=== PATIENT | male | born 1955 | race Caucasian/White ===

== ENCOUNTER 2024-10-19 07:56 | Outpatient (AMB) | payer OTHER, SELFPAY ==
[2024-10-19 08:13] VITALS: BP 124/79; PULSE 73; RESP 18; TEMP 36.2; O2SAT 96; BMI 39.6
--- NOTE | 2024-10-19 08:13 | ORTHONT_ITS ---
Vital signs 10/19/24 08:13 Height 1.73 m Height Method Stated Weight 118.388 kg Weight Measurement Method Standing Scale BMI 39.6 BP 124/79 Blood Pressure Source Automatic Cuff Blood Pressure Location Right Upper Arm Position Sitting Respiration 18 Pulse 73 Pulse Source Monitor Temp 97.2 F Temp Source Temporal Artery Scan Pulse Oximetry (%) 96 Oxygen Delivery Method Room Air Med/Allergies Allergies & Medications Allergies No Known Allergies Allergy (Verified 10/19/24 08:16) Medication Reconciliation aspirin 81 mg tablet 81 mg PO QDAY 10/19/24 [History Confirmed 10/19/24] atorvastatin 40 mg tablet 40 mg PO QDAY 10/19/24 [History Confirmed 10/19/24] clopidogrel 75 mg tablet 75 mg PO QDAY 10/19/24 [History Confirmed 10/19/24] clopidogrel 75 mg tablet (Plavix) 75 mg PO QDAY 10/19/24 [History Confirmed 10/19/24] cyclobenzaprine 10 mg tablet 10 mg PO HS 10/19/24 [History Confirmed 10/19/24] empagliflozin 25 mg tablet (Jardiance) 25 mg PO QAM 10/19/24 [History Confirmed 10/19/24] ibuprofen 800 mg tablet 800 mg PO Q8H 10/19/24 [History Confirmed 10/19/24] lisinopril 40 mg tablet 40 mg PO QDAY 10/19/24 [History Confirmed 10/19/24] loratadine 10 mg tablet 10 mg PO QDAY 10/19/24 [History Confirmed 10/19/24] metformin 1,000 mg tablet 1,000 mg PO QDAY 10/19/24 [History Confirmed 10/19/24] metoprolol succinate 25 mg tablet,extended release 24 hr 25 mg PO QDAY 10/19/24 [History Confirmed 10/19/24] prednisone 20 mg tablet 20 mg PO QDAY 10/19/24 [History Confirmed 10/19/24] semaglutide 0.25 mg or 0.5 mg (2 mg/1.5 mL) subcutaneous pen injector (Ozempic) 0.5 mg subcut QWEEK 10/19/24 [History Confirmed 10/19/24] Exam Exam patient is in no acute distress and is cooperative with the examination today. Breathing is nonlabored. In no respiratory distress. Bilateral extremities were evaluated and demonstrates sensation intact to light touch. Palpable pedal pulses are present. No significant edema is present. Bilateral hips were examined. The patient has no pain with log roll of the hips. Internal rotation to 30 degrees and external rotation to 30 degrees is painless. Negative FADIR. The left knee was examined. The left knee is in varus alignment. Range of motion from 0-115 degrees. Knee is stable to varus and valgus as well as AP translation with <5mm. Patient has a negative McMurrays. There is no pain with patellofemoral compression and no crepitus noted. The knee is tender to palpation medially. The right knee was also examined. The right knee is in varus alignment. Range of motion from 0-120 degrees. Knee is stable to varus and valgus as well as AP translation with <5mm. Patient has a negative McMurrays. There is no pain with patellofemoral compression and no crepitus noted. The knee is tender to palpation medially. Assessment and Plan Problem List (1) Degenerative arthritis of knee, bilateral: Status: Acute Plan: patient's pleasant 61-year-old male with bilateral knee pain and bilateral knee arthritis. We discussed different treatment options. We recommend that he get x-rays as we do not have any x-rays on record. He has seen multiple orthopedic surgeons and he was offered various treatment options that all seem to conflict. We will get new x-rays and go from Advanced Care Planning Discussion Advance care planning discussed with:: patient Office Procedures GNS Level of Care Nursing/Assessment Patient Status: Initial/New Patient Nursing Assessment/Reassesment: Medication Reconciliation, Update PMH in EMR and Vital Signs Coordination of Care: Complex Care and Chronic Disease 1-5, Education Complex Pt/Fam, Consent,records obtained, informed consent, 1 Ins Authorization, Lab and Imaging orders, Results/Orders obtained and Staff clarify orders New Patient Charge New Patient Point Assignment: 1124 New Patient Point Charge: INSOLE [employer]IP [employer]URNER Level 4 ([id number]) MA Intake Visit Data Collection New Patient or Established: New Patient (never been to [facility]) Reason for Visit:: BILATERAL KNEE PAIN Seen by Clinical Staff ONLY (RN/MA): No PCP or OBGYN visit in last 3 months: Yes Hx Now: No Do You Feel Safe at Home: Yes Authorities Contacted: N/A Questionairres Past Medical History Past Medical History Have you ever been diagnosed with any of the following: Neurological Problems Cerebrovascular Accident (CVA): No Transient Ischemic Attacks (TIA): No Dementia: No Alzheimer's Disease: No Parkinson's Disease: No Brain Tumor: No Meningitis: No Seizures: No Epilepsy: No Multiple Sclerosis: No Cerebral Palsy: No Amyotrophic Lateral Sclerosis (ALS/Diandra Gehrig's): No Guillain-[place] Syndrome: No Spina Bifida: No Paralysis: No Peripheral Neuropathy: No Calvillo's Palsy: No Subdural Hematoma: No Migraine: No Head Trauma: No Spinal Cord Injury: No Traumatic Brain Injury: No Cardiology Problems Myocardial Infarction: No Cardiac Arrhythmia: No Atrial Fibrillation: No Angina: No Heart Murmur: No Coronary Artery Disease: No Atherosclerotic Heart Disease: No Peripheral Vascular Disease: No Hypercholesterolemia: No Aneurysm: No Congestive Heart Failure: No Congenital Heart Disease: No Valvular Heart Disease: No Rheumatic Fever: No Cardiomyopathy: No Edema: No Pericarditis: No Cellulitis: No Deep Vein Thrombosis: No Hypertension: Yes Hypotension: No Varicose Veins: No Respiratory Problems Chronic Obstructive Pulmonary Disease (COPD): No Asthma: No Bronchitis: No Emphysema: No Pneumonia: No Pulmonary Fibrosis: No Tuberculosis: No Pulmonary Embolism: No Pulmonary Edema: No Sleep Apnea: No CPAP Dependent: No Respiratory Aspiration: No Dyspnea: No Orthopnea: No Hx Cough: No Cough: No Wheezing: No Chest Deformities: No Smoking: No Smoking Cessation Counseling: No Smoking Exposure: No Tobacco Use: No Clubbing: No Exposure to Respiratory Irritants: No Intubation: No Stomache/Intestinal Problems Liver Cancer: No Hepatitis: No Cirrhosis: No Pancreatic Cancer: No Pancreatitis: No Celiac Disease: No Gall Bladder Disease: No Gastrointestinal Bleed: No Esophageal Varices: No Wu's Esophagus: No Colitis: No Ulcerative Colitis: No Diverticulitis: No Diverticulosis: No Ulcer: No Colorectal Cancer: No Irritable Bowel: No Crohn's Disease: No Obstructive Bowel: No Hiatal Hernia: No Hemorrhoids: No Gastroesophageal Reflux Disease: No Polyps: No Obesity: No Genital/Urinary Problems Chronic Kidney Disease: No Renal Disease: No Kidney Stones: No Polycystic Kidney Disease: No Neurogenic Bladder: No Inguinal Hernia: No Dialysis: No Prostate Cancer: No Benign Prostatic Hyperplasia: No Reproductive Problems Breast Cancer: No Fibroids: No Genital Herpes: No Gonorrhea: No Syphilis: No Testicular Cancer: No Musculoskeletal Problems Muscular Dystrophy: No Myasthenia Gravis: No Marfan's Syndrome: No Bone Cancer: No Arthritis: Yes Rheumatoid Arthritis: No Osteoporosis: No Degenerative Disk Disease: No Gout: No Scoliosis: No Carpal Tunnel Syndrome: No Fibromyalgia: No Fractures: No Degenerative Joint Disease: No Osteomyelitis: No Poliovirus: No Head,Eye,Nose,Throat Problems Cataracts: No Glaucoma: No Blind: No Retinal Detachment: No Macular Degeneration: No Chronic Ear Infections: No Deafness: No Eye Prosthesis: No Endocrine Problems Diabetes Mellitus Type 1: No Diabetes Mellitus Type 2: Yes Hypoglycemia: No [place]'s Syndrome: No Hakeem's Disease: No Hyperthyroidism: No Hypothyroidism: No Thyroid Cancer: No Parathyroid Disease: No Pituitary Disease: No Systemic Lupus Erythematosus: No Syndrome of Inappropriate Antidiuretic Hormone: No Blood Problems Anemia: No Leukemia: No Hemophilia: No Thalassemia: No Sickle Cell Disease: No Clotting Problems: No Psychologic Problems Schizophrenia: No Recreational Drug Use: No Bipolar Disorder: No Depression: No Anxiety: No Behavior Problems: No Self-Mutilation: No Attention Deficit Disorder: No Attention Deficit Hyperactivity Disorder: No Depression: No Post Traumatic Stress Disorder: No Eating Disorder: No Other Problems Hospitalization: No Autoimmune Disease: No Down Syndrome: No Autism: No Developmental Delay: No Cosmetic Surgery: No Shingles: No Falls: No Blood Transfusions: No Blood Transfusion Reaction: No Anesthesia Reactions: No Organ Transplant: No Chemotherapy: No Radiation Therapy: No Hyperbaric Therapy: No MRSA: No VRSA: No Vancomycin-Resistant Enterococci: No Human Immunodeficiency Virus (HIV): No Chicken Pox: No Measles: No Mumps: No Rubella ([place] Measles): No Pertussis: No Klebsiella Pneumoniae Carbapenemase Producing Bacteria: No Clostridium Difficile: No Hepatitis A: No Hepatitis B: No Hepatitis C: No Communicable Disease: No Cancer: No Lung Cancer: No Surgical History Angioplasty: No Appendectomy: No Bariatric Surgery: No Breast Surgery: No Cancer Surgery: No Carotid Endarterectomy: No Cholecystectomy: No Colectomy: No Coronary Artery Bypass Graft: No Valve Replacement: No Herniorrhaphy: No Total Hip Replacement: No Total Knee Replacement: No Pacemaker: Yes Sinus Surgery: No Splenectomy: No Thyroidectomy: No Subjective Visit Visit for: new patient and knee Immunization / Flu Flu Vaccine in the Last 12 Months: No Flu Vaccine Exclusion Criteria: Refused by Patient History of Present Illness Chief complaint: Bilateral knee pain Date of injury / onset of symptoms: 5 YEARS patient is a pleasant 61-year-old male with bilateral knee pain of approximately equal severity on both sides. The knee pain has been ongoing for at least 5 years. He has tried multiple injections in the past as well as physical therapy and takes ibuprofen. He does have a history of a pacemaker and he is on Plavix. . He also has a history of diabetes Personal History Occupation: RETIRED BMI Counceling provided: Yes Pain Pain level (0-10): 8 Pain duration: CONSTANT Pain location: anterior Pain quality: sharp, dull and aching Pain timing: night, increases with activity and stairs Ambulatory data Ambulatory device: none Treatments Number of previous injections: 5 Improvement with previous injections: No Number of Physical Therapy sessions: 4 Improvement with PT: No Improvement with NSAIDS: no Review of Systems Review of Systems: All systems negative unless otherwise noted in HPI.
--- NOTE | 2024-10-19 08:20 | XR_ITS ---
Examination: Bilateral knees 2 views Right lateral knee left lateral knee 2 views Bilateral axial knees single view TECHNIQUE: Bilateral AP knees standing single view, bilateral PA knees standing single view flexion Staining right lateral knee left lateral knee 2 views Bilateral axial knees single view total 5 views Date and time: October 19, 2024, 0826 hours INDICATIONS: Bilateral knee pain 5 years, left knee surgery 40 years ago. FINDINGS: Moderate to advanced narrowing lateral joint space right knee Moderate to advanced osteoarthritis right patellofemoral joint Severe narrowing lateral joint space left knee Moderate to advanced osteoarthritis left patellofemoral joint No fractures No patellar dislocations IMPRESSION: Moderate to advanced narrowing lateral joint space right knee Moderate to advanced osteoarthritis right patellofemoral joint Severe narrowing lateral joint space left knee Moderate to advanced osteoarthritis left patellofemoral joint
== END 2024-10-19 08:23 | disposition home or self-care (01) ==
PROVIDERS: PCP Family Medicine; Referring Provider Family Medicine; Supervising Provider Orthopaedic Surgery Adult Reconstructive Orthopaedic Surgery; Visit Provider Orthopaedic Surgery Adult Reconstructive Orthopaedic Surgery
DX: M17.0 Bilateral primary osteoarthritis of knee (principal); M25.562 Pain in left knee; M25.561 Pain in right knee
CPT/HCPCS: 73564; 99204; G0463

== ENCOUNTER 2024-11-02 09:34 | Outpatient (AMB) | payer OTHER, SELFPAY ==
--- NOTE | 2024-11-02 09:45 | PD.ORTHCLVIS ---
Vital signs 11/02/24 09:50 Height 1.73 m Height Method Measured Weight 118.047 kg Weight Measurement Method Standing Scale BMI 39.4 BP 154/83 H Blood Pressure Source Automatic Cuff Blood Pressure Location Left Upper Arm Position Sitting Respiration 18 Pulse 75 Pulse Source Monitor Temp 98.2 F Temp Source Temporal Artery Scan Pulse Oximetry (%) 96 Oxygen Delivery Method Room Air Med/Allergies Allergies & Medications Allergies No Known Allergies Allergy (Verified 11/02/24 09:51) Medication Reconciliation aspirin 81 mg tablet 81 mg PO QDAY 10/19/24 [History Confirmed 11/02/24] atorvastatin 40 mg tablet 40 mg PO QDAY 10/19/24 [History Confirmed 11/02/24] clopidogrel 75 mg tablet 75 mg PO QDAY 10/19/24 [History Confirmed 11/02/24] clopidogrel 75 mg tablet (Plavix) 75 mg PO QDAY 10/19/24 [History Confirmed 11/02/24] cyclobenzaprine 10 mg tablet 10 mg PO HS 10/19/24 [History Confirmed 11/02/24] empagliflozin 25 mg tablet (Jardiance) 25 mg PO QAM 10/19/24 [History Confirmed 11/02/24] ibuprofen 800 mg tablet 800 mg PO Q8H 10/19/24 [History Confirmed 11/02/24] lisinopril 40 mg tablet 40 mg PO QDAY 10/19/24 [History Confirmed 11/02/24] loratadine 10 mg tablet 10 mg PO QDAY 10/19/24 [History Confirmed 11/02/24] metformin 1,000 mg tablet 1,000 mg PO QDAY 10/19/24 [History Confirmed 11/02/24] metoprolol succinate 25 mg tablet,extended release 24 hr 25 mg PO QDAY 10/19/24 [History Confirmed 11/02/24] prednisone 20 mg tablet 20 mg PO QDAY 10/19/24 [History Confirmed 11/02/24] semaglutide 0.25 mg or 0.5 mg (2 mg/1.5 mL) subcutaneous pen injector (Ozempic) 0.5 mg subcut QWEEK 10/19/24 [History Confirmed 11/02/24] Exam Exam patient is in no acute distress and is cooperative with the examination today. Breathing is nonlabored. In no respiratory distress. Bilateral extremities were evaluated and demonstrates sensation intact to light touch. Palpable pedal pulses are present. No significant edema is present. Bilateral hips were examined. The patient has no pain with log roll of the hips. Internal rotation to 30 degrees and external rotation to 30 degrees is painless. Negative FADIR. The left knee was examined. The left knee is in varus alignment. Range of motion from 0-115 degrees. Knee is stable to varus and valgus as well as AP translation with <5mm. Patient has a negative McMurrays. There is no pain with patellofemoral compression and no crepitus noted. The knee is tender to palpation medially. The right knee was also examined. The right knee is in varus alignment. Range of motion from 0-120 degrees. Knee is stable to varus and valgus as well as AP translation with <5mm. Patient has a negative McMurrays. There is no pain with patellofemoral compression and no crepitus noted. The knee is tender to palpation medially and laterally. Xrays demonstrate complete joint space loss laterally and valgus deformity Assessment and Plan Problem List (1) Degenerative arthritis of knee, bilateral: Status: Acute Plan: patient is a pleasant 61-year-old male with bilateral knee pain and bilateral knee arthritis. We discussed different treatment options. We discussed continued conservative treatment with injections and anti-inflammatories as well as surgery. He would likely be at high risk for surgery given that he is on Plavix and had pacemaker. He will need a cardiac clearance for sure. I will have him see his patient services assistant to get risk ratified. We discussed total knee replacement today as a possible Advanced Care Planning Discussion Advance care planning discussed with:: patient Office Procedures GNS Level of Care Nursing/Assessment Patient Status: Established Patient Nursing Assessment/Reassesment: Medication Reconciliation, Update PMH in EMR and Vital Signs Coordination of Care: Complex Care and Chronic Disease 1-5, Education Complex Pt/Fam, Consent,records obtained, informed consent, Results/Orders obtained and Staff clarify orders Established Patient Charge Established Patient Point Assignment: 95 Established Patient Point Charge: EP Level 3 (80-115) MA Intake Visit Data Collection New Patient or Established: Established Patient (seen at [facility] within 3 years) Reason for Visit:: XRAY RESULTS BILATERAL KNEE PAIN Seen by Clinical Staff ONLY (RN/MA): No Stone Decorator Required: No PCP or OBGYN visit in last 3 months: Yes Hx Now: No Do You Feel Safe at Home: Yes Authorities Contacted: N/A Questionairres Past Medical History Past Medical History Have you ever been diagnosed with any of the following: Neurological Problems Cerebrovascular Accident (CVA): No Transient Ischemic Attacks (TIA): No Dementia: No Alzheimer's Disease: No Parkinson's Disease: No Brain Tumor: No Meningitis: No Seizures: No Epilepsy: No Multiple Sclerosis: No Cerebral Palsy: No Amyotrophic Lateral Sclerosis (ALS/Diandra Gehrig's): No Guillain-[place] Syndrome: No Spina Bifida: No Paralysis: No Peripheral Neuropathy: No Calvillo's Palsy: No Subdural Hematoma: No Migraine: No Head Trauma: No Spinal Cord Injury: No Traumatic Brain Injury: No Cardiology Problems Myocardial Infarction: No Cardiac Arrhythmia: No Atrial Fibrillation: No Angina: No Heart Murmur: No Coronary Artery Disease: No Atherosclerotic Heart Disease: No Peripheral Vascular Disease: No Hypercholesterolemia: No Aneurysm: No Congestive Heart Failure: No Congenital Heart Disease: No Valvular Heart Disease: No Rheumatic Fever: No Cardiomyopathy: No Edema: No Pericarditis: No Cellulitis: No Deep Vein Thrombosis: No Hypertension: Yes Hypotension: No Varicose Veins: No Respiratory Problems Chronic Obstructive Pulmonary Disease (COPD): No Asthma: No Bronchitis: No Emphysema: No Pneumonia: No Pulmonary Fibrosis: No Tuberculosis: No Pulmonary Embolism: No Pulmonary Edema: No Sleep Apnea: No CPAP Dependent: No Respiratory Aspiration: No Dyspnea: No Orthopnea: No Hx Cough: No Cough: No Wheezing: No Chest Deformities: No Smoking: No Smoking Cessation Counseling: No Smoking Exposure: No Tobacco Use: No Clubbing: No Exposure to Respiratory Irritants: No Intubation: No Stomache/Intestinal Problems Liver Cancer: No Hepatitis: No Cirrhosis: No Pancreatic Cancer: No Pancreatitis: No Celiac Disease: No Gall Bladder Disease: No Gastrointestinal Bleed: No Esophageal Varices: No Wu's Esophagus: No Colitis: No Ulcerative Colitis: No Diverticulitis: No Diverticulosis: No Ulcer: No Colorectal Cancer: No Irritable Bowel: No Crohn's Disease: No Obstructive Bowel: No Hiatal Hernia: No Hemorrhoids: No Gastroesophageal Reflux Disease: No Obesity: No Genital/Urinary Problems Renal Disease: No Kidney Stones: No Polycystic Kidney Disease: No Neurogenic Bladder: No Inguinal Hernia: No Dialysis: No Prostate Cancer: No Benign Prostatic Hyperplasia: No Reproductive Problems Breast Cancer: No Fibroids: No Genital Herpes: No Gonorrhea: No Syphilis: No Testicular Cancer: No Musculoskeletal Problems Muscular Dystrophy: No Myasthenia Gravis: No Marfan's Syndrome: No Bone Cancer: No Arthritis: Yes Rheumatoid Arthritis: No Osteoporosis: No Degenerative Disk Disease: No Gout: No Scoliosis: No Carpal Tunnel Syndrome: No Fibromyalgia: No Fractures: No Degenerative Joint Disease: No Osteomyelitis: No Poliovirus: No Head,Eye,Nose,Throat Problems Cataracts: No Glaucoma: No Blind: No Retinal Detachment: No Macular Degeneration: No Chronic Ear Infections: No Deafness: No Eye Prosthesis: No Endocrine Problems Diabetes Mellitus Type 1: No Diabetes Mellitus Type 2: Yes Hypoglycemia: No Dee's Syndrome: No Hakeem's Disease: No Hyperthyroidism: No Hypothyroidism: No Thyroid Cancer: No Parathyroid Disease: No Pituitary Disease: No Systemic Lupus Erythematosus: No Syndrome of Inappropriate Antidiuretic Hormone: No Blood Problems Anemia: No Leukemia: No Hemophilia: No Thalassemia: No Sickle Cell Disease: No Clotting Problems: No Psychologic Problems Schizophrenia: No Recreational Drug Use: No Bipolar Disorder: No Depression: No Anxiety: No Behavior Problems: No Self-Mutilation: No Attention Deficit Disorder: No Attention Deficit Hyperactivity Disorder: No Depression: No Post Traumatic Stress Disorder: No Eating Disorder: No Other Problems Hospitalization: No Down Syndrome: No Autism: No Developmental Delay: No Cosmetic Surgery: No Shingles: No Falls: No Blood Transfusions: No Blood Transfusion Reaction: No Anesthesia Reactions: No Organ Transplant: No Chemotherapy: No Radiation Therapy: No Hyperbaric Therapy: No MRSA: No VRSA: No Vancomycin-Resistant Enterococci: No Human Immunodeficiency Virus (HIV): No Chicken Pox: No Measles: No Mumps: No Rubella ([place] Measles): No Pertussis: No Klebsiella Pneumoniae Carbapenemase Producing Bacteria: No Clostridium Difficile: No Hepatitis A: No Hepatitis B: No Hepatitis C: No Communicable Disease: No Cancer: No Lung Cancer: No Surgical History Angioplasty: No Appendectomy: No Bariatric Surgery: No Breast Surgery: No Cancer Surgery: No Carotid Endarterectomy: No Cholecystectomy: No Colectomy: No Coronary Artery Bypass Graft: No Valve Replacement: No Herniorrhaphy: No Total Hip Replacement: No Total Knee Replacement: No Pacemaker: Yes Sinus Surgery: No Splenectomy: No Thyroidectomy: No Subjective Visit Visit for: follow up visit and knee Immunization / Flu Flu Vaccine in the Last 12 Months: Yes Flu Vaccine Exclusion Criteria: Refused by Patient History of Present Illness Chief complaint: XRAY RESULTS BILATERAL KNEE PAIN Date of injury / onset of symptoms: 5 YEARS patient is a pleasant 61-year-old male with bilateral knee pain of approximately equal severity on both sides. The knee pain has been ongoing for at least 5 years. He has tried multiple injections in the past as well as physical therapy and takes ibuprofen. He does have a history of a pacemaker and he is on Plavix. . He also has a history of diabetes Personal History Occupation: RETIRED Red flag PMH: none BMI Counceling provided: Yes Pain Pain level (0-10): 8 Pain duration: CONSTANT Pain location: anterior Pain quality: sharp Pain timing: increases with activity Associated signs & symptoms: none Ambulatory data Ambulatory device: none Treatments Number of previous injections: 6 Improvement with previous injections: Yes Number of Physical Therapy sessions: 0 Improvement with PT: No Improvement with NSAIDS: yes Review of Systems Review of Systems: All systems negative unless otherwise noted in HPI.
[2024-11-02 09:50] VITALS: BP 154/83; PULSE 75; RESP 18; TEMP 36.8; O2SAT 96; BMI 39.4
== END 2024-11-02 10:10 | disposition home or self-care (01) ==
LOC: HODSRG 09:34
PROVIDERS: PCP Family Medicine; Referring Provider Family Medicine; Supervising Provider Orthopaedic Surgery Adult Reconstructive Orthopaedic Surgery; Visit Provider Orthopaedic Surgery Adult Reconstructive Orthopaedic Surgery
DX: M17.0 Bilateral primary osteoarthritis of knee (principal); M25.562 Pain in left knee; M25.561 Pain in right knee; I10 Essential (primary) hypertension; E11.9 Type 2 diabetes mellitus without complications; Z95.0 Presence of cardiac pacemaker
CPT/HCPCS: 99213; G0463

== ENCOUNTER → 2025-02-02 | Outpatient (CLI) | payer OTHER, SELFPAY ==
--- NOTE | 2025-02-02 15:00 | XR_ITS ---
Examination: CT left lower extremity, without contrast. 2-D sagittal reconstructions. 2-D coronal reconstructions. 3-D reconstructions. Date and time of exam: February 02 0 25, 1517 hours INDICATIONS: Diagnosis primary unilateral osteoarthritis left knee, left knee pain for years CTDI: vol (mGy): 10.6 DLP: (mGycm): 799 Technique: Multiple 1.25 mm axial sections of the left lower extremity without intravenous contrast have been obtained. 2-D sagittal and coronal reconstructions have been obtained. 3-D reconstructions have been obtained. Low dose protocols were performed. One or more of the following dose reduction techniques were used; automated exposure control, adjustment of the mA and/or KV according to patient size, use of iterative reconstruction technique. Findings: Mild osteopenia. Mild narrowing left hip joint No left hip fracture or dislocation Severe narrowing lateral joint space left knee Significant osteoarthritis medial and patellofemoral joints No fracture IMPRESSION: Advanced left knee tricompartment osteoarthritis
--- NOTE | 2025-02-02 15:30 | XR_ITS ---
Examination: CT right lower extremity, without contrast. 2-D sagittal reconstructions. 2-D coronal reconstructions. 3-D reconstructions. Date and time of exam: February 02, 2025, 1517 hours INDICATIONS: Diagnosis primary unilateral osteoarthritis right knee, right knee pain for years CTDI: vol (mGy): 13.1 DLP: (mGycm): 890 Technique: Multiple 1.25 mm axial sections of the right lower extremity without intravenous contrast have been obtained. 2-D sagittal and coronal reconstructions have been obtained. 3-D reconstructions have been obtained. Low dose protocols were performed. One or more of the following dose reduction techniques were used; automated exposure control, adjustment of the mA and/or KV according to patient size, use of iterative reconstruction technique. Findings: Moderate osteopenia Mild narrowing right hip joint No right hip fracture or dislocation Severe narrowing lateral joint space right knee Advanced osteoarthritis lateral patellofemoral joints No fracture or dislocation IMPRESSION: Advanced right knee tricompartment osteoarthritis
== END | disposition home or self-care (01) ==
PROVIDERS: Referring Provider Orthopaedic Surgery Adult Reconstructive Orthopaedic Surgery; Visit Provider Orthopaedic Surgery Adult Reconstructive Orthopaedic Surgery
DX: M17.0 Bilateral primary osteoarthritis of knee (principal)
CPT/HCPCS: 73700

== ENCOUNTER 2025-02-15 07:55 | Outpatient (AMB) | payer OTHER, SELFPAY ==
--- NOTE | 2025-02-15 08:09 | ORTHONT_ITS ---
Vital signs 02/15/25 08:18 Height 1.73 m Height Method Measured Weight 119.351 kg Weight Measurement Method Standing Scale BMI 39.9 BP 124/80 Blood Pressure Source Automatic Cuff Blood Pressure Location Left Upper Arm Position Sitting Respiration 18 Pulse 81 Pulse Source Monitor Temp 96.8 F Temp Source Temporal Artery Scan Pulse Oximetry (%) 94 L Oxygen Delivery Method Room Air Med/Allergies Allergies & Medications Allergies No Known Allergies Allergy (Verified 02/15/25 08:19) Medication Reconciliation aspirin 81 mg tablet 81 mg PO QDAY 10/19/24 [History Confirmed 02/15/25] atorvastatin 40 mg tablet 40 mg PO QDAY 10/19/24 [History Confirmed 02/15/25] clopidogrel 75 mg tablet 75 mg PO QDAY 10/19/24 [History Confirmed 02/15/25] clopidogrel 75 mg tablet (Plavix) 75 mg PO QDAY 10/19/24 [History Confirmed 02/15/25] cyclobenzaprine 10 mg tablet 10 mg PO HS 10/19/24 [History Confirmed 02/15/25] empagliflozin 25 mg tablet (Jardiance) 25 mg PO QAM 10/19/24 [History Confirmed 02/15/25] ibuprofen 800 mg tablet 800 mg PO Q8H 10/19/24 [History Confirmed 02/15/25] lisinopril 40 mg tablet 40 mg PO QDAY 10/19/24 [History Confirmed 02/15/25] loratadine 10 mg tablet 10 mg PO QDAY 10/19/24 [History Confirmed 02/15/25] metformin 1,000 mg tablet 1,000 mg PO QDAY 10/19/24 [History Confirmed 02/15/25] metoprolol succinate 25 mg tablet,extended release 24 hr 25 mg PO QDAY 10/19/24 [History Confirmed 02/15/25] prednisone 20 mg tablet 20 mg PO QDAY 10/19/24 [History Confirmed 02/15/25] semaglutide 0.25 mg or 0.5 mg (2 mg/1.5 mL) subcutaneous pen injector (Ozempic) 0.5 mg subcut QWEEK 10/19/24 [History Confirmed 02/15/25] Exam Exam patient is in no acute distress and is cooperative with the examination today. Breathing is nonlabored. In no respiratory distress. Bilateral extremities were evaluated and demonstrates sensation intact to light touch. Palpable pedal pulses are present. No significant edema is present. Bilateral hips were examined. The patient has no pain with log roll of the hips. Internal rotation to 30 degrees and external rotation to 30 degrees is painless. Negative FADIR. The left knee was examined. The left knee is in varus alignment. Range of motion from 0-115 degrees. Knee is stable to varus and valgus as well as AP translation with <5mm. Patient has a negative McMurrays. There is no pain with patellofemoral compression and no crepitus noted. The knee is tender to palpation medially. The right knee was also examined. The right knee is in varus alignment. Range of motion from 0-120 degrees. Knee is stable to varus and valgus as well as AP translation with <5mm. Patient has a negative McMurrays. There is no pain with patellofemoral compression and no crepitus noted. The knee is tender to palpation medially and laterally. Xrays demonstrate complete joint space loss laterally and valgus deformity Assessment and Plan Problem List (1) Degenerative arthritis of knee, bilateral: Status: Acute Plan: patient is a pleasant 69-year-old male with bilateral knee pain and bilateral knee arthritis. We discussed different treatment options. We discussed continued conservative treatment with injections and anti-inflammatories as well as surgery. He is to stop his Plavix 7 days before surgery according to cardiology note. We will resume this postoperatively. He was cleared from a cardiac standpoint The nature and purpose of the total knee replacement, alternative method(s) of treatment, the material risks involved, and the possibility of complications were fully explained to the patient. The patient does NOT have any of the following contraindications to TKA: - Active infection of the knee joint, OR - Active systemic bacteremia, OR - Active skin infection or open wound at surgical site, OR - Neuropathic arthritis, OR - Severe, rapidly progressive neurological disease, OR - Severe medical condition that makes risks of surgery outweigh the potential benefit The patient was told the most common risks and complications associated with a total knee replacement include, but are not limited to: blood clots in the leg, fatal pulmonary embolism, dislocation of the prosthesis, intraoperative and postoperative fractures of the femur or tibia, infection, failure of the prosthesis or grafting materials, complications from anesthesia, reactions to blood transfusions, postoperative leg length inequality, instability of the knee replacement, nerve damage or injury, vascular injury, delayed wound healing, infection, other injury or even . In addition, there are risks associated with anesthesia given during this operation. Also, the patient was told that after undergoing a total knee replacement there may still be persistent pain or disability. The patient was informed that the success of this operation in part depends upon the mechanical devices which are going to be implanted and that these devices can fail or malfunction, and may need to be repaired or replaced and there are no guarantees as to the longevity of this device or its parts and that it or its parts could fail prematurely. The patient was also notified that during the course of surgery, there may be a need to use bone graft from donors, and that any bone graft used will be carefully screened for communicable diseases, including AIDS, hepatitis, Jorje-Creutzfeldt, or other diseases, but despite the screening procedures, there is a small chance that they could contract one of these diseases. Finally, the patient was asked to follow completely and fully with all advice and recommended treatments, and that recovery and ultimate outcome are affected by their compliance with recommended treatment. We discussed the risks, benefits and treatment alternatives, and the patient is interested in proceeding with surgery. We will try to set this up as expeditiously as possible. Advanced Care Planning Discussion Advance care planning discussed with:: patient Office Procedures GNS Level of Care Nursing/Assessment Patient Status: Established Patient Nursing Assessment/Reassesment: Medication Reconciliation, Update PMH in EMR and Vital Signs Coordination of Care: Complex Care and Chronic Disease 1-5, Education Complex Pt/Fam, Consent,records obtained, informed consent, Results/Orders obtained and Staff clarify orders Established Patient Charge Established Patient Point Assignment: 95 Established Patient Point Charge: EP Level 3 (80-115) MA Intake Visit Data Collection New Patient or Established: Established Patient (seen at [facility] within 3 years) Reason for Visit:: PRE OP TKA Seen by Clinical Staff ONLY (RN/MA): No Enterprise Security Architect Required: No PCP or OBGYN visit in last 3 months: Yes Hx Now: No Do You Feel Safe at Home: Yes Authorities Contacted: N/A Questionairres Past Medical History Past Medical History Have you ever been diagnosed with any of the following: Neurological Problems Cerebrovascular Accident (CVA): No Transient Ischemic Attacks (TIA): No Dementia: No Alzheimer's Disease: No Parkinson's Disease: No Brain Tumor: No Meningitis: No Seizures: No Epilepsy: No Multiple Sclerosis: No Cerebral Palsy: No Amyotrophic Lateral Sclerosis (ALS/Diandra Gehrig's): No Guillain-Newport Syndrome: No Spina Bifida: No Paralysis: No Peripheral Neuropathy: No Calvillo's Palsy: No Subdural Hematoma: No Migraine: No Head Trauma: No Spinal Cord Injury: No Traumatic Brain Injury: No Cardiology Problems Myocardial Infarction: No Cardiac Arrhythmia: No Atrial Fibrillation: No Angina: No Heart Murmur: No Coronary Artery Disease: No Atherosclerotic Heart Disease: No Peripheral Vascular Disease: No Hypercholesterolemia: No Aneurysm: No Congestive Heart Failure: No Congenital Heart Disease: No Valvular Heart Disease: No Rheumatic Fever: No Cardiomyopathy: No Edema: No Pericarditis: No Cellulitis: No Deep Vein Thrombosis: No Hypertension: Yes Hypotension: No Varicose Veins: No Respiratory Problems Chronic Obstructive Pulmonary Disease (COPD): No Asthma: No Bronchitis: No Emphysema: No Pneumonia: No Pulmonary Fibrosis: No Tuberculosis: No Pulmonary Embolism: No Pulmonary Edema: No Sleep Apnea: No CPAP Dependent: No Respiratory Aspiration: No Dyspnea: No Orthopnea: No Hx Cough: No Cough: No Wheezing: No Chest Deformities: No Smoking: No Smoking Cessation Counseling: No Smoking Exposure: No Tobacco Use: No Clubbing: No Exposure to Respiratory Irritants: No Intubation: No Stomache/Intestinal Problems Liver Cancer: No Hepatitis: No Cirrhosis: No Pancreatic Cancer: No Pancreatitis: No Celiac Disease: No Gall Bladder Disease: No Gastrointestinal Bleed: No Esophageal Varices: No Wu's Esophagus: No Colitis: No Ulcerative Colitis: No Diverticulitis: No Diverticulosis: No Ulcer: No Colorectal Cancer: No Irritable Bowel: No Crohn's Disease: No Obstructive Bowel: No Hiatal Hernia: No Hemorrhoids: No Gastroesophageal Reflux Disease: No Obesity: No Genital/Urinary Problems Renal Disease: No Kidney Stones: No Polycystic Kidney Disease: No Neurogenic Bladder: No Inguinal Hernia: No Dialysis: No Prostate Cancer: No Benign Prostatic Hyperplasia: No Reproductive Problems Breast Cancer: No Fibroids: No Genital Herpes: No Gonorrhea: No Syphilis: No Testicular Cancer: No Musculoskeletal Problems Muscular Dystrophy: No Myasthenia Gravis: No Marfan's Syndrome: No Bone Cancer: No Arthritis: Yes Rheumatoid Arthritis: No Osteoporosis: No Degenerative Disk Disease: No Gout: No Scoliosis: No Carpal Tunnel Syndrome: No Fibromyalgia: No Fractures: No Degenerative Joint Disease: No Osteomyelitis: No Poliovirus: No Head,Eye,Nose,Throat Problems Cataracts: No Glaucoma: No Blind: No Retinal Detachment: No Macular Degeneration: No Chronic Ear Infections: No Deafness: No Eye Prosthesis: No Endocrine Problems Diabetes Mellitus Type 1: No Diabetes Mellitus Type 2: Yes Hypoglycemia: No Dee's Syndrome: No Rincon's Disease: No Hyperthyroidism: No Hypothyroidism: No Thyroid Cancer: No Parathyroid Disease: No Pituitary Disease: No Systemic Lupus Erythematosus: No Syndrome of Inappropriate Antidiuretic Hormone: No Blood Problems Anemia: No Leukemia: No Hemophilia: No Thalassemia: No Sickle Cell Disease: No Clotting Problems: No Psychologic Problems Schizophrenia: No Recreational Drug Use: No Bipolar Disorder: No Depression: No Anxiety: No Behavior Problems: No Self-Mutilation: No Attention Deficit Disorder: No Attention Deficit Hyperactivity Disorder: No Depression: No Post Traumatic Stress Disorder: No Eating Disorder: No Other Problems Hospitalization: No Down Syndrome: No Autism: No Developmental Delay: No Cosmetic Surgery: No Shingles: No Falls: No Blood Transfusions: No Blood Transfusion Reaction: No Anesthesia Reactions: No Organ Transplant: No Chemotherapy: No Radiation Therapy: No Hyperbaric Therapy: No MRSA: No VRSA: No Vancomycin-Resistant Enterococci: No Human Immunodeficiency Virus (HIV): No Chicken Pox: No Measles: No Mumps: No Rubella (Palestinian Measles): No Pertussis: No Klebsiella Pneumoniae Carbapenemase Producing Bacteria: No Clostridium Difficile: No Hepatitis A: No Hepatitis B: No Hepatitis C: No Communicable Disease: No Cancer: No Lung Cancer: No Surgical History Angioplasty: No Appendectomy: No Bariatric Surgery: No Breast Surgery: No Cancer Surgery: No Carotid Endarterectomy: No Cholecystectomy: No Colectomy: No Coronary Artery Bypass Graft: No Valve Replacement: No Herniorrhaphy: No Total Hip Replacement: No Total Knee Replacement: No Pacemaker: Yes Sinus Surgery: No Splenectomy: No Thyroidectomy: No Subjective Visit Visit for: follow up visit and knee Immunization / Flu Flu Vaccine in the Last 12 Months: Yes Flu Vaccine Exclusion Criteria: Refused by Patient History of Present Illness Chief complaint: PRE OP TKA Date of injury / onset of symptoms: 5 YEARS patient is a pleasant 61-year-old male with bilateral knee pain of approximately equal severity on both sides. The knee pain has been ongoing for at least 5 years. He has tried multiple injections in the past as well as physical therapy and takes ibuprofen. He does have a history of a pacemaker and he is on Plavix. . He also has a history of diabetes Personal History Occupation: RETIRED Red flag PMH: none BMI Counceling provided: Yes Pain Pain level (0-10): 5 Pain duration: CONSTANT Pain location: anterior Pain quality: sharp Pain timing: increases with activity Associated signs & symptoms: none Ambulatory data Ambulatory device: walker (WALKER WAS DISPENSED 02/15/2025) Treatments Number of previous injections: 6 Improvement with previous injections: Yes Number of Physical Therapy sessions: 0 Improvement with PT: No Improvement with NSAIDS: yes Review of Systems Review of Systems: All systems negative unless otherwise noted in HPI.
[2025-02-15 08:18] VITALS: BP 124/80; PULSE 81; RESP 18; TEMP 36; O2SAT 94; BMI 39.9
== END 2025-02-15 08:40 | disposition home or self-care (01) ==
LOC: HODSRG 07:55
PROVIDERS: PCP Family Medicine; Referring Provider Family Medicine; Supervising Provider Orthopaedic Surgery Adult Reconstructive Orthopaedic Surgery; Visit Provider Orthopaedic Surgery Adult Reconstructive Orthopaedic Surgery
DX: M25.562 Pain in left knee (principal); M25.561 Pain in right knee; M19.012 Primary osteoarthritis, left shoulder; Z96.651 Presence of right artificial knee joint; I10 Essential (primary) hypertension; E11.9 Type 2 diabetes mellitus without complications; Z79.84 Long term (current) use of oral hypoglycemic drugs
CPT/HCPCS: 99213; G0463

== ENCOUNTER 2025-02-26 07:25 | Day surgery (SDC) | payer OTHER, SELFPAY ==
[2025-02-23 09:06] VITALS: BMI 40.4
[2025-02-23 10:59] LABS: Basophils # (Auto) 0.0 Thou/mm3 (0.0-0.2); Basophils % (Auto) 1 % (0-2.5); Eosinophils # (Auto) 0.2 Thou/mm3 (0.0-0.5); Eosinophils % (Auto) 3 % (0-10); Hematocrit 44.1 % (41.0-53.0); Hemoglobin 15.1 g/dL (13.5-16.0); Immature Granulocytes Auto 0.02 Thou/mm3 (0.00-0.00); Lymphocytes # (Auto) 1.6 Thou/mm3 (1.0-4.8); Lymphocytes % (Auto) 28 % (10-50); Mean Corpuscular HGB Conc 34.2 g/dl (31.0-37.0); Mean Corpuscular Hemoglobin 32.5 pg (25.0-35.0); Mean Corpuscular Volume 95 fL (80-100); Monocytes # (Auto) 0.5 Thou/mm3 (0.0-0.8); Monocytes % (Auto) 9 % (0-12); Neutrophils # (Auto) 3.4 Thou/mm3 (1.8-7.7); Neutrophils % (Auto) 59 % (37-80); Nucleated Red Blood Cell # 0.00 Thou/mm3 (0.00-0.00); Nucleated Red Blood Cell % 0 /100 WBC (0); Platelet Count 188 Thou/mm3 (140-440); RDW Standard Deviation 43.7 fL (35.1-43.9); Red Blood Count 4.64 Miln/mm3 (4.50-5.90); White Blood Count 5.7 Thou/mm3 (3.8-10.6)
[2025-02-23 11:09] LABS: INR 1.0 (0.9-1.3); Partial Thromboplastin Time 30.5 Seconds (22.0-36.0); Prothrombin Time 10.3 Seconds (9.0-12.2)
[2025-02-23 11:15] LABS: Alanine Aminotransferase 34 U/L (10-49); Albumin, Serum 5.1 gm/dL (3.4-4.8); Albumin/Globulin Ratio 2.3 (1.2-2.2); Alkaline Phosphatase 70 U/L (46-116); Anion Gap 11 (7-16); Aspartate Amino Transferase 29 U/L (0-34); BUN/Creatinine Ratio 14 Ratio (12-20); Bilirubin,Total 0.6 mg/dL (0.3-1.2); Blood Urea Nitrogen 15 mg/dL (9-23); Calcium 9.6 mg/dL (8.3-10.6); Calcium (Corrected) 9.6 mg/dL (8.5-10.1); Carbon Dioxide 27.4 mMol/L (20.0-31.0); Chloride 103 mMol/L (98-107); Creatinine (Component) 1.1 mg/dL (0.6-1.3); Estimated Creatinine Clearance 81.2 mL/min (>60); Globulin 2.2 gm/dL (2.3-3.5); Glucose 109 mg/dL (74-106); Osmolality,Calculated 283 (275-295); Potassium 4.5 mMol/L (3.4-5.1); Sodium 141 mMol/L (136-145); Total Protein 7.3 gm/dL (5.7-8.2); eGFR > 60 See Note
[2025-02-26] VITALS (18 sets, daily range): BP systolic 101–151; BP diastolic 63–85; PULSE 73–82; RESP 12–22; TEMP 36.6–36.8; O2SAT 96–100
--- NOTE | 2025-02-26 08:23 | SUR.PREOP ---
Patient expressed gratitude for prayer before their procedure.
[2025-02-26] MEDS: MELOXICAM 7.5 MG TABLET PO (08:25)
[2025-02-26] MEDS: RINGERS LACTATED 1000 ML 1,000 ML 20 ML IV (08:25)
[2025-02-26] MEDS: ACETAMINOPHEN 325 MG TABLET 650 MG PO (08:25)
[2025-02-26] MEDS: PREGABALIN 75 MG CAPSULE PO (08:25)
--- NOTE | 2025-02-26 10:33 | ESOP_ITS ---
Date of Procedure 02/26/25 Pre Op Diagnosis right knee osteoarthritis Post Op Diagnosis right knee osteoarthritis Procedure right total knee replacement los Findings full thickness cartilage loss and osteophytes Procedure Description Indication: The patient has a long history of right knee pain. X-rays show degenerative arthritis involving the knee. Over the past several years the patient has had increasing pain, progressive limitation in function. He has failed conservative measures including activity modification, physical therapy, injections, anti- inflammatories, and assistive devices. After a lengthy discussion of the risks and benefits, the patient presents now for total knee replacement. The nature and purpose of the total knee replacement, alternative method(s) of treatment, the material risks involved, and the possibility of complications were fully explained to the patient. The patient was told the most common risks and complications associated with a total knee replacement include, but are not limited to blood clots in the leg, fatal pulmonary embolism, dislocation of the prosthesis, intraoperative and postoperative fractures of the femur or tibia, infection, failure of the prosthesis or grafting materials, complications from anesthesia, reactions to blood transfusions, postoperative leg length inequality, instability of the knee replacement, nerve damage or injury, vascular injury, delayed wound healing, infections, other injury or even . In addition, there are risks associated with anesthesia given during this operation, temporary or permanent numbness on the skin lateral to the incision can be a complication unique to total knee surgery, and kneeling can be painful after knee replacement surgery. Also, the patient was told that after undergoing a total knee replacement there may still be pain or disability. We discussed with the patient that we will be using a robot-assisted technology. We discussed that there is a possibility of converting to manual instrumentation. The patient was informed that the success of this operation in part depends upon the mechanical devices which are going to be implanted and that these devices can fail or malfunction, and may need to be repaired or replaced and there are no guarantees as to the longevity of this device or its part and that it or its parts could fail prematurely. Finally, the patient was asked to follow completely and fully with all advice and recommended treatments, and that recovery and ultimate outcome are affected by their compliance with recommended treatment. Surgical technique: Patient was marked and consented in the pre-operative area. The patient was brought to the operating room and placed on the operating table in a supine position. Prior to positioning, a timeout procedure was performed between the surgeon, the anesthesiologist, and the nursing staff where the patient and the operative side were identified and confirmed. After adequate general anesthetic was obtained, the right lower extremity was prepped and draped in the usual sterile fashion. A weight based dose of Cefazolin were administered within 1 hour prior to incision. The robot was preregistered and calibrated before the incision. The extremity was exsanguinated with an esmarch badge and tourniquet inflated to 250mmHg. A midline incision was made. A median parapatellar arthrotomy was made. The patella was subluxed laterally. A medial release was performed to expose the medial tibia. His femoral and tibial pins were placed through an intra incisional manner for both cases. Every effort was made to ensure that the distalmost aspect of the pin was hung in the second cortex. The arrays were then tightened several times to ensure that it was fixed for the remainder of the case. Both femoral and tibial checkpoints were then placed. We then went through the registration process of the bone. We then assessed the knee deformity and attempted to correct it. We also used the robot to aid in judging laxity in both extension and flexion. Final based on laxity and alignment we changed the preoperative assessment to obtain proper proper implant positioning and to correct deformity. Attention was then placed to the tibia. We made a tibial cut using the robot ensuring that both the MCL and the patella tendon were protected with retractors. We then went to the femur and made the posterior cut followed by the anterior cut and the anterior chamfer. The bone was then removed and we made a distal femur cut and a posterior chamfer cut. We verified all cuts. A trial reduction was performed with a size 5 femoral component and a size 5 keeled tibial component. T The patella tracked centrally, and no lateral retinacular release was necessary. The trial implants were removed. The arrays, pins, and checkpoints were all removed. We performed a verification that all p ins were removed. The cut bone surfaces were lavaged. A size 5 right femoral component, a size 5 keeled tibial component were impacted into position. The knee was felt to be well balanced in the sagittal and coronal plane. The final 5x10 mm cruciate- substituting articular insert was impacted into the tibial tray. The knee was brought out to full extension, flexed up to 120 degrees. It was stable to varus and valgus stress and appropriately balanced in flexion and extension. The wounds were copiously irrigated following deflation of tourniquet. The medial retinaculum was reapproximated with #1 vicryl and quill. The subcutaneous tissues were closed with 0 and 2-0 interrupted Vicryl. The skin was closed with 3-0 Monofilament V loc suture. A sterile dressing was applied. The patient was transferred to a bed and brought to recovery in stable condition. The patient tolerated the procedure well. There were no intraoperative complications. Sponge and needle counts were correct times 2. As the attending surgeon, I attest I was present and performed the entire operation. Grafts/Implants Size 5 CR Femur Size 5 Tibia 10mm poly CS Anesthesia spinal Implants Implants comments: nico Pathology / specimen None Pathology comment: none Estimated Blood Loss 150 Condition Stable Disposition same day Surgeon Leonel Damico MD Surgical Staff Operation Date: 02/26/25 12:45 Case Staff Anesthesiologist: David Watkins RN First Assistant: Bailey Swain
--- NOTE | 2025-02-26 10:33 | XR_ITS ---
EXAMINATION: Right knee 2 views TECHNIQUE: AP lateral right knee 2 views Date and time: February 26, 2025, 1158 hours INDICATIONS: Postop knee replacement FINDINGS: Total right knee arthroplasty. Satisfactory alignment No fracture IMPRESSION: Total right knee arthroplasty with satisfactory alignment
--- NOTE | 2025-02-26 11:44 | SUR.PHASEI ---
1110: Pt received in [facility] via gurney. Report from Dorys COLLADO and Magdiel CANSECO. Pt groggy, but awake. Resp even, unlabored. VS stable. Dressing to right leg dry, clean, intact. Bilateral pedal pusles strong, regular. Denies pain. 1135: Pt more awake. Resp even, unlabored. VS stable. Dressing remains dry, clean, intact. Bilateral pedal pulses strong, regular. Denies pain.
--- NOTE | 2025-02-26 12:31 | SUR.PHASEII ---
1150: Pt has been resting with no complaints voiced. Resp even, unlabored. VS stable. Dressing remains dry, clean, intact with bilateral pedal pulses strong, regular. Denies pain. Radiology here to take ordered knee x-rays. Pt tolerated procedure with no complaints voiced. 1210: at bedside.
--- NOTE | 2025-02-26 13:02 | SUR.PHASEII ---
1250: Pt been resting with no complaints voiced. VS stable. Dressing remains dry, clean, intact. Bilateral pedal pulses strong, regular. was bedside. Lunch meal received. Pt consuming meal with no difficulty swallowing and no n/v.
--- NOTE | 2025-02-26 15:07 | SUR.PHASEII ---
1430: Pt has been resting with no complaints voiced. VS stable. Dressing remains dry, clean, intact. at bedside. Dermatome at perinium. Physical Therapy here to assess pt. 1455: Physical Therapy assessment complete. Stated pt has met criteria for discharge except pt unable to void. After pt voids he may be discharged. Pt assisted onto gurney. Tolerating po fluids.
--- NOTE | 2025-02-26 15:48 | SUR.PHASEII ---
1500: Pt sitting on edge of gurney attempting to void. 1530: Pt stated he wished to sit on toilet to void. Assisted to restroom. 1600: Pt unable to void. Assisted to gurney. Bladder palpated and is not firm. Is resting at this time.
--- NOTE | 2025-02-26 16:29 | SUR.PHASEII ---
1615: Pt voided in urinal 400cc clear yellow urine. VS stable. Dressing remains dry, clean, intact. Bilateral pedal pulses strong, regular. States he has minimal pain with movement. 1630: Pt and stated understanding of discharge instructions. Pt also instructed to pickling operator his prescriptions from his pharmacy. Pt discharged from [facility] in stable condition.
== END 2025-02-26 16:30 | disposition home or self-care (01) ==
PROVIDERS: Anesthesiology; PCP Family Medicine; Referring Provider Orthopaedic Surgery Adult Reconstructive Orthopaedic Surgery; Visit Provider Orthopaedic Surgery Adult Reconstructive Orthopaedic Surgery
PROC: (CPT 27447; principal; 2025-02-26 12:45)
DX: M17.11 Unilateral primary osteoarthritis, right knee (principal); M25.761 Osteophyte, right knee
CPT/HCPCS: 27447; 20985; 36415; 73560; 80053; 85025; 85610; 85730; 97162; A4217; A4649; C1713; C1776; J0690; J2250; J2371; J2405; J2598; J2704; J2795; J3010; J7120; A4648; A9270

== ENCOUNTER 2025-03-13 08:47 | Outpatient (AMB) | payer OTHER, SELFPAY ==
--- NOTE | 2025-03-13 09:15 | PD.ORTHCLVIS ---
Vital signs 03/13/25 09:20 Height 1.73 m Height Method Stated Weight 115.893 kg Weight Measurement Method Standing Scale BMI 38.7 BP 119/72 Blood Pressure Source Automatic Cuff Blood Pressure Location Left Upper Arm Position Sitting Respiration 18 Pulse 90 Pulse Source Monitor Temp 97.2 F Temp Source Temporal Artery Scan Pulse Oximetry (%) 96 Oxygen Delivery Method Room Air Med/Allergies Allergies & Medications Allergies No Known Allergies Allergy (Verified 03/13/25 09:21) Medication Reconciliation aspirin 81 mg tablet 81 mg PO QDAY 10/19/24 [History Confirmed 03/13/25] atorvastatin 40 mg tablet 40 mg PO QDAY 10/19/24 [History Confirmed 03/13/25] clopidogrel 75 mg tablet 75 mg PO QDAY 10/19/24 [History Confirmed 03/13/25] empagliflozin 25 mg tablet (Jardiance) 25 mg PO QAM 10/19/24 [History Confirmed 03/13/25] lisinopril 40 mg tablet 40 mg PO QDAY 10/19/24 [History Confirmed 03/13/25] loratadine 10 mg tablet 10 mg PO QDAY 10/19/24 [History Confirmed 03/13/25] metformin 1,000 mg tablet 1,000 mg PO QDAY 10/19/24 [History Confirmed 03/13/25] metoprolol succinate 25 mg tablet,extended release 24 hr 25 mg PO QDAY 10/19/24 [History Confirmed 03/13/25] semaglutide 0.25 mg or 0.5 mg (2 mg/1.5 mL) subcutaneous pen injector (Ozempic) 0.5 mg subcut QWEEK 10/19/24 [History Confirmed 03/13/25] montelukast 10 mg tablet 10 mg PO DAILY 02/23/25 [History Confirmed 03/13/25] acetaminophen 325 mg tablet 650 mg (2 x 325 mg) PO QID #90 tabs 02/26/25 [Rx Confirmed 03/13/25] doxycycline hyclate 100 mg tablet 100 mg PO BID #14 tabs 02/26/25 [Rx Confirmed 03/13/25] gabapentin 300 mg capsule 300 mg PO .qhs #30 caps 02/26/25 [Rx Confirmed 03/13/25] oxycodone 5 mg tablet 5 mg PO Q6H PRN pain #28 tabs 02/26/25 [Rx Confirmed 03/13/25] sennosides 8.6 mg-docusate sodium 50 mg tablet (Senna-S) 1 tab-cap PO QDAY #30 tabs 02/26/25 [Rx Confirmed 03/13/25] Exam Exam Patient is in no acute distress and is cooperative with the examination today. Breathing is nonlabored. Patient has a normal mood and affect. Bilateral extremities were evaluated and demonstrates sensation intact to light touch. Palpable pedal pulses are present. No significant edema is present. Bilateral hips were examined. The patient has no pain with log roll of the hips. Internal rotation to 30 degrees and external rotation to 30 degrees is painless. Negative FADIR. Right knee was examined today. The right knee is in neutral alignment. The incision is clean dry and intact. Assessment and Plan Problem List (1) Degenerative arthritis of knee, bilateral: Status: Acute Plan: Patient is status post right total knee replacement. He is doing well. He is on Plavix We will see him back in 4 weeks for routine follow-up Advanced Care Planning Discussion Advance care planning discussed with:: patient Office Procedures GNS Level of Care Nursing/Assessment Patient Status: Established Patient Nursing Assessment/Reassesment: Medication Reconciliation, Update PMH in EMR and Vital Signs Coordination of Care: Complex Care and Chronic Disease 1-5, Education Complex Pt/Fam, Consent,records obtained, informed consent, Results/Orders obtained and Staff clarify orders Established Patient Charge Established Patient Point Assignment: 95 Established Patient Point Charge: EP Level 3 (80-115) MA Intake Visit Data Collection New Patient or Established: Established Patient (seen at [facility] within 3 years) Reason for Visit:: 2 WK R TKA Seen by Clinical Staff ONLY (RN/MA): No Break Up Worker Required: No PCP or OBGYN visit in last 3 months: Yes Hx Now: No Do You Feel Safe at Home: Yes Authorities Contacted: N/A Questionairres Past Medical History Past Medical History Have you ever been diagnosed with any of the following: Neurological Problems Cerebrovascular Accident (CVA): No Transient Ischemic Attacks (TIA): No Dementia: No Alzheimer's Disease: No Parkinson's Disease: No Brain Tumor: No Meningitis: No Seizures: No Epilepsy: No Multiple Sclerosis: No Cerebral Palsy: No Amyotrophic Lateral Sclerosis (ALS/Diandra Gehrig's): No Guillain-[place] Syndrome: No Spina Bifida: No Paralysis: No Peripheral Neuropathy: No Calvillo's Palsy: No Subdural Hematoma: No Migraine: No Head Trauma: No Spinal Cord Injury: No Traumatic Brain Injury: No Cardiology Problems Myocardial Infarction: No Cardiac Arrhythmia: No Atrial Fibrillation: No Angina: No Heart Murmur: No Coronary Artery Disease: No Atherosclerotic Heart Disease: No Peripheral Vascular Disease: No Hypercholesterolemia: No Aneurysm: No Congestive Heart Failure: No Congenital Heart Disease: No Valvular Heart Disease: No Rheumatic Fever: No Cardiomyopathy: No Edema: No Pericarditis: No Cellulitis: No Deep Vein Thrombosis: No Hypertension: Yes Hypotension: No Varicose Veins: No Respiratory Problems Chronic Obstructive Pulmonary Disease (COPD): No Asthma: No Bronchitis: No Emphysema: No Pneumonia: No Pulmonary Fibrosis: No Tuberculosis: No Pulmonary Embolism: No Pulmonary Edema: No Sleep Apnea: No CPAP Dependent: No Respiratory Aspiration: No Dyspnea: No Orthopnea: No Hx Cough: No Cough: No Wheezing: No Chest Deformities: No Smoking: No Smoking Cessation Counseling: No Smoking Exposure: No Tobacco Use: No Clubbing: No Exposure to Respiratory Irritants: No Intubation: No Stomache/Intestinal Problems Liver Cancer: No Hepatitis: No Cirrhosis: No Pancreatic Cancer: No Pancreatitis: No Celiac Disease: No Gall Bladder Disease: No Gastrointestinal Bleed: No Esophageal Varices: No Wu's Esophagus: No Colitis: No Ulcerative Colitis: No Diverticulitis: No Diverticulosis: No Ulcer: No Colorectal Cancer: No Irritable Bowel: No Crohn's Disease: No Obstructive Bowel: No Hiatal Hernia: No Hemorrhoids: No Gastroesophageal Reflux Disease: No Obesity: No Genital/Urinary Problems Renal Disease: No Kidney Stones: No Polycystic Kidney Disease: No Neurogenic Bladder: No Inguinal Hernia: No Dialysis: No Prostate Cancer: No Benign Prostatic Hyperplasia: No Reproductive Problems Breast Cancer: No Fibroids: No Genital Herpes: No Gonorrhea: No Syphilis: No Testicular Cancer: No Musculoskeletal Problems Muscular Dystrophy: No Myasthenia Gravis: No Marfan's Syndrome: No Bone Cancer: No Arthritis: Yes Rheumatoid Arthritis: No Osteoporosis: No Degenerative Disk Disease: No Gout: No Scoliosis: No Carpal Tunnel Syndrome: No Fibromyalgia: No Fractures: No Degenerative Joint Disease: No Osteomyelitis: No Poliovirus: No Head,Eye,Nose,Throat Problems Cataracts: No Glaucoma: No Blind: No Retinal Detachment: No Macular Degeneration: No Chronic Ear Infections: No Deafness: No Eye Prosthesis: No Endocrine Problems Diabetes Mellitus Type 1: No Diabetes Mellitus Type 2: Yes Hypoglycemia: No Dee's Syndrome: No Hernando's Disease: No Hyperthyroidism: No Hypothyroidism: No Thyroid Cancer: No Parathyroid Disease: No Pituitary Disease: No Systemic Lupus Erythematosus: No Syndrome of Inappropriate Antidiuretic Hormone: No Blood Problems Anemia: No Leukemia: No Hemophilia: No Thalassemia: No Sickle Cell Disease: No Clotting Problems: No Psychologic Problems Schizophrenia: No Recreational Drug Use: No Bipolar Disorder: No Depression: No Anxiety: No Behavior Problems: No Self-Mutilation: No Attention Deficit Disorder: No Attention Deficit Hyperactivity Disorder: No Depression: No Post Traumatic Stress Disorder: No Eating Disorder: No Other Problems Hospitalization: No Down Syndrome: No Autism: No Developmental Delay: No Cosmetic Surgery: No Shingles: No Falls: No Blood Transfusions: No Blood Transfusion Reaction: No Anesthesia Reactions: No Organ Transplant: No Chemotherapy: No Radiation Therapy: No Hyperbaric Therapy: No MRSA: No VRSA: No Vancomycin-Resistant Enterococci: No Human Immunodeficiency Virus (HIV): No Chicken Pox: No Measles: No Mumps: No Rubella ([place] Measles): No Pertussis: No Klebsiella Pneumoniae Carbapenemase Producing Bacteria: No Clostridium Difficile: No Hepatitis A: No Hepatitis B: No Hepatitis C: No Communicable Disease: No Cancer: No Lung Cancer: No Surgical History Angioplasty: No Appendectomy: No Bariatric Surgery: No Breast Surgery: No Cancer Surgery: No Carotid Endarterectomy: No Cholecystectomy: No Colectomy: No Coronary Artery Bypass Graft: No Valve Replacement: No Herniorrhaphy: No Total Hip Replacement: No Total Knee Replacement: No Pacemaker: Yes Sinus Surgery: No Splenectomy: No Thyroidectomy: No Subjective Visit Visit for: follow up visit and knee Immunization / Flu Flu Vaccine in the Last 12 Months: Yes Flu Vaccine Exclusion Criteria: Refused by Patient History of Present Illness Chief complaint: PRE OP TKA Date of injury / onset of symptoms: 5 YEARS patient is a pleasant 61-year-old male with bilateral knee pain of approximately equal severity on both sides. He is doing well s/p R TKA Personal History Occupation: RETIRED Red flag PMH: none BMI Counceling provided: Yes Pain Pain level (0-10): 5 Pain duration: CONSTANT Pain location: anterior Pain quality: sharp Pain timing: increases with activity Associated signs & symptoms: none Ambulatory data Ambulatory device: walker Treatments Number of previous injections: 6 Improvement with previous injections: Yes Number of Physical Therapy sessions: 0 Improvement with PT: No Improvement with NSAIDS: yes Review of Systems Review of Systems: All systems negative unless otherwise noted in HPI.
[2025-03-13 09:20] VITALS: BP 119/72; PULSE 90; RESP 18; TEMP 36.2; O2SAT 96; BMI 38.7
== END 2025-03-13 09:25 | disposition home or self-care (01) ==
LOC: HODSRG 08:47
PROVIDERS: PCP Family Medicine; Referring Provider Family Medicine; Supervising Provider Orthopaedic Surgery Adult Reconstructive Orthopaedic Surgery; Visit Provider Orthopaedic Surgery Adult Reconstructive Orthopaedic Surgery
DX: M25.562 Pain in left knee (principal); M25.561 Pain in right knee; Z96.651 Presence of right artificial knee joint; M17.12 Unilateral primary osteoarthritis, left knee; I10 Essential (primary) hypertension; E11.9 Type 2 diabetes mellitus without complications; Z79.84 Long term (current) use of oral hypoglycemic drugs
CPT/HCPCS: 99213; G0463